=== PATIENT | male | born 1985 | race Caucasian/White ===

== ENCOUNTER 2017-07-08 09:31 | Emergency (ER) | payer OTHER ==
[~2017-07-08] VITALS: Ht 172.7 cm; Wt 90.0 kg
[~2017-07-08 09:31] MED LIST: IBUP-1050 PO
[2017-07-08 09:44] VITALS: TEMP 37.1; Ht 172.7 cm; Wt 90.0 kg
--- NOTE | 2017-07-08 11:10 | EMERGENCY ROOM VISIT NOTE ---
History Report prepared by Albina: Jorge Leon Under the Supervision of: Dr. Tangela Santana M.D. First contact with patient: 10:16 Chief Complaint: ALLERGIC REACTION Stated Complaint: [id number]/FOOD ALERGY Nursing Triage Summary: Pt states he ate at [employer] last night, sarted with an itchy rash/hives on arms and abd, denies SOB History of Present Illness The patient is a 32 year old male who presents to the Emergency Room with complaints of a worsening allergic reaction starting around 2099 last night. The patient states that he ate out at a restaurant, and 20 minutes after eating he started to get this rash and itchiness. He states that he has eaten that same meal before, and he did not eat any shrimp. The patient states that he has a rash that started on his wrists and neck, and now it has spread to his back, abdomen, and chest. The patient states that he is not having any difficulty breathing or throat tightness. He reports that he took 3 Benadryl last night, though he has not taken anything this morning. The patient states that he is not diabetic. Source of History: patient Onset: 2099 last night Position: other (global) Quality: other (allergic reaction) Timing: worsening Associated Symptoms: + rash, No SOB Note: Associated symptoms: Itchiness Review of Systems See HPI for pertinent positives & negatives. A total of 10 systems reviewed and were otherwise negative. Past Medical & Surgical Medical Problems: (1) No chronic problems Family History Bleeding disorder Kidney stones Social History Smoking Status: Never Smoker Drug Use: none Marital Status: Housing Status: lives with family Occupation Status: employed Current/Historical Medications Scheduled Prednisone (Prednisone), 40 MG PO DAILY Allergies Coded Allergies: No Known Allergies (Unverified , 07/08/17) Physical Exam Vital Signs Date Time Temp Pulse Resp B/P (MAP) Pulse Ox O2 Delivery O2 Flow Rate FiO2 07/08/17 11:40 82 18 148/89 98 Room Air 07/08/17 10:17 98 Room Air 07/08/17 09:44 37.1 101 16 162/97 98 Physical Exam Vital signs reviewed. General: Well-appearing male, in no significant distress. HEENT: No scleral icterus, PERRLA, neck supple. Atraumatic. Posterior oropharynx is clear. Cardiovascular: Regular rate and rhythm, no extra sounds. Pulmonary: Clear to auscultation bilaterally, normal work of breathing. Abdomen: Soft, nontender, nondistended, positive bowel sounds. Musculoskeletal: Atraumatic, no peripheral edema. Neurologic: Patient awake alert and oriented x 3 Skin: Urticarial rash to the chest, abdomen, upper and lower extremities, and less so on the back Medical Decision & Procedures Medications Administered Medications (Trade) Dose Ordered Sig/Luisa Route Start Time Stop Time Status Last Admin Dose Admin Prednisone (PredniSONE TAB) 60 mg NOW STAT PO 07/08/17 10:29 07/08/17 10:30 DC 07/08/17 10:47 60 MG Diphenhydramine HCl (Benadryl Cap) 50 mg NOW ONCE PO 07/08/17 10:30 07/08/17 10:31 DC 07/08/17 10:47 50 MG ED Course 1016: Past medical records reviewed. The patient was evaluated in room C12. A complete history and physical examination was performed. 1029: Prednisone 60mg PO 1030: Benadryl 50mg PO 1133: Upon reevaluation, the patient appeared to have improvement of his symptoms. I discussed findings with him. He verbalized agreement of the treatment plan. He was discharged home. Medical Decision Differential diagnosis: Etiologies such as allergic reaction, anaphylaxis, urticaria, Reilly-Jimi syndrome, toxic epidermal necrolysis, erythema multiforme, cellulitis, as well as others were entertained. This patient was evaluated and appeared to be in no significant distress. Physical examination reveals evidence of an urticarial rash consistent with an allergic reaction. Patient was given 60 mg of oral prednisone, 50 mg of Benadryl. The etiology of the allergic reaction is unclear. He was given an EpiPen at discharge in case a more significant anaphylaxis would occur. Patient will keep a mental food log if symptoms recur. He will follow-up with his physician for reevaluation. He will return to the ER for worsening symptoms or any medical concerns. Medication Reconcilliation Current Medication List: was personally reviewed by me Blood Pressure Screening Patient's blood pressure: Elevated blood pressure Blood pressure disposition: Elevated BP felt to be situational Impression Primary Impression: Allergic reaction Scribe Attestation The scribe's documentation has been prepared under my direction and personally reviewed by me in its entirety. I confirm that the note above accurately reflects all work, treatment, procedures, and medical decision making performed by me. Departure Information Dispostion Home / Self-Care Prescriptions Prednisone (Prednisone) 20 Mg Tab 40 MG PO DAILY, #8 TAB Prov: Tangela Santana M.D. 07/08/17 Referrals No Doctor, Assigned (PCP) Forms HOME CARE DOCUMENTATION FORM, IMPORTANT VISIT INFORMATION Patient Instructions My [facility] Additional Instructions Diagnosis: Allergic reaction Benadryl 50 mg every 6 hours as needed for allergic symptoms. This may make you drowsy. Prednisone 40 mg daily for 4 more days. EpiPen as directed for severe allergic symptoms. Follow-up with your physician for reevaluation if symptoms persist or reoccur. Return to the ER for worsening of symptoms or any medical concerns.
[2017-07-08 11:40] VITALS: BP 148/89; PULSE 82; O2SAT 98
[2017-07-08] MEDS ORDERED: PRED20TA PO (11:49)
[2017-07-09] MEDS ORDERED: EPP3/2 IM (15:28)
== END 2017-07-08 11:58 | disposition home or self-care (01) ==
LOC: C.EDB 09:32 → C.EDC 11:58
DX: T78.49XA Other allergy, initial encounter (principal); X58.XXXA Exposure to other specified factors, initial encounter; R21 Rash and other nonspecific skin eruption; L29.9 Pruritus, unspecified

== ENCOUNTER 2017-07-20 15:03 | Emergency (ER) | payer OTHER ==
[~2017-07-20] VITALS: Ht 172.7 cm; Wt 88.4 kg
[~2017-07-20 15:03] MED LIST changes: +EPP3/2 IM; -IBUP-1050 PO; +PRED20TA PO
[2017-07-20 15:10] VITALS: Ht 172.7 cm; Wt 88.4 kg
[2017-07-20] MEDS ORDERED: SODIUM CHLORIDE 0.9% 1000ML 1,000 ML IV STA (15:22)
[2017-07-20] MEDS ORDERED: ONDANSETRON INJ 2 MG/ML 2 ML VIAL IV STA (15:22)
[2017-07-20] MEDS ORDERED: DIPH25CA5 PO (15:42)
[2017-07-20] MEDS ORDERED: EPP3/2 IM (15:42)
[2017-07-20 15:52] LABS: BASO % 0.2 %; BASO ABS # 0.02 K/uL (0-0.2); EOS % 0.3 %; EOS ABS # 0.03 K/uL (0-0.5); HEMATOCRIT 47.7 % (42-52); HEMOGLOBIN 17.6 g/dL (14.0-18.0); IG# 0.04 K/uL (0.00-0.02); LYMPH % 2.9 %; LYMPH ABS # 0.33 K/uL (1.2-3.4); MEAN CORPUSCULAR HEMOGLOBIN 30.6 pg (25-34); MEAN CORPUSCULAR HGB CONC 36.9 g/dl (32-36); MEAN PLATELET VOLUME 10.3 fL (7.4-10.4); MONO ABS # 0.35 K/uL (0.11-0.59); NEUT % 93.3 %; NEUT ABS # 10.72 K/uL (1.4-6.5); PLATELET COUNT 161 K/uL (130-400); RED CELL DISTRIBUTION WIDTH CV 12.8 % (11.5-14.5); RED CELL DISTRIBUTION WIDTH SD 38.3 fL (36.4-46.3); WHITE BLOOD COUNT 11.49 K/uL (4.8-10.8)
[2017-07-20 16:17] LABS: CREATININE 1.14 mg/dl (0.60-1.40); POTASSIUM 3.6 mmol/L (3.5-5.1)
[2017-07-20 16:30] LABS: INFLUENZA A PCR Neg for Influ A (NEG); INFLUENZA B PCR Neg for Influ B (NEG)
[2017-07-20] MEDS ORDERED: ACETAMINOPHEN 500 MG TAB PO STA (16:43)
[2017-07-20] MEDS ORDERED: ONDA4TAB10 SL (16:44)
[2017-07-20 18:09] VITALS: BP 123/69; PULSE 95; TEMP 37.2; O2SAT 99
--- NOTE | 2017-07-20 21:08 | EMERGENCY ROOM VISIT NOTE ---
History Report prepared by Albina: Lucio Branch Under the Supervision of: Dr. Lucio Kulkarni M.D. First contact with patient: 15:16 Chief Complaint: FLU LIKE SX Stated Complaint: FLU History of Present Illness The patient is a 32 year old male who presents to the Emergency Room with complaints of worsening flu-like symptoms that began this morning when he woke up. Initially the patient had some abdominal discomfort with diarrhea. Later in the day he developed typical flulike symptoms including body aches, shaking, fevers, chills, mild cough, and feeling dehydrated. Patient adds that the vomiting and abdominal pain have resolved since coming to the ED but he has not felt like he could drink anything. He states that he has not had to pee today and that drinking water makes him throw up. He denies any chest pain or shortness of breath. Patient denies getting a flu shot this year. He denies taking any medication to resolve the symptoms. He denies a history of medical problems. Source of History: patient Onset: This morning Position: other (Global) Symptom Intensity: moderate Quality: other (Flulike symptoms) Timing: worsening Modifying Factors (Worsening): drinking Modifying Factors (Relieving): other (None) Associated Symptoms: + fevers, + chills, + cough, + vomiting, + abdominal pain, + urinary symptoms, No chest pain, No SOB Note: Patient has body aches and dehydration. Review of Systems See HPI for pertinent positives & negatives. A total of 10 systems reviewed and were otherwise negative. Past Medical & Surgical Medical Problems: (1) No chronic problems Family History Bleeding disorder Kidney stones Social History Smoking Status: Never Smoker Drug Use: none Marital Status: Housing Status: lives with family Occupation Status: employed Current/Historical Medications Scheduled Ondasetron Odt (Zofran Odt), 4 MG SL Q6H Scheduled PRN Diphenhydramine Hcl (Benadryl), 50 MG PO DIRECTED PRN for PRN Epinephrine (Epipen), 0.3 MG IM UD PRN for Allergic Reaction Allergies Coded Allergies: No Known Allergies (Unverified , 07/20/17) Physical Exam Vital Signs Date Time Temp Pulse Resp B/P (MAP) Pulse Ox O2 Delivery O2 Flow Rate FiO2 07/20/17 18:09 37.2 95 20 123/69 99 3/17/18 18:04 95 20 123/69 99 Room Air 07/20/17 17:04 102 20 152/64 99 Room Air 07/20/17 16:02 102 20 127/75 98 Room Air 07/20/17 15:10 37.8 110 18 124/70 95 Room Air Physical Exam Constitutional: Vital signs reviewed. Eyes: Pupils are equal round reactive to light. Conjunctiva are noninjected. ENT: Pharynx is clear without erythema or exudate. Mucous membranes are dry. Neck supple without meningeal signs. Respiratory: Clear to auscultation bilaterally. Breath sounds are equal bilaterally. Cardiovascular: Regular rate and rhythm. No rubs or gallops. GI: Soft, nondistended and nontender. Bowel sounds are present. Musculoskeletal: No peripheral edema. No lower extremity tenderness. Integumentary: No cyanosis. Neurological: The patient is awake and alert. No focal deficits. Psychiatric: Normal affect. Medical Decision & Procedures Laboratory Results 07/20/17 15:30 Red Blood Count 5.75, Mean Corpuscular Volume 83.0, Mean Corpuscular Hemoglobin 30.6, Mean Corpuscular Hemoglobin Concent 36.9, Mean Platelet Volume 10.3, Neutrophils (%) (Auto) 93.3, Lymphocytes (%) (Auto) 2.9, Monocytes (%) (Auto) 3.0, Eosinophils (%) (Auto) 0.3, Basophils (%) (Auto) 0.2, Neutrophils # (Auto) 10.72, Lymphocytes # (Auto) 0.33, Monocytes # (Auto) 0.35, Eosinophils # (Auto) 0.03, Basophils # (Auto) 0.02 07/20/17 15:30 Test 07/20/17 15:28 07/20/17 15:30 Influenza Type A (RT-PCR) Neg for Influ A (NEG) Influenza Type B (RT-PCR) Neg for Influ B (NEG) White Blood Count 11.49 K/uL (4.8-10.8) Red Blood Count 5.75 M/uL (4.7-6.1) Hemoglobin 17.6 g/dL (14.0-18.0) Hematocrit 47.7 % (42-52) Mean Corpuscular Volume 83.0 fL (80-100) Mean Corpuscular Hemoglobin 30.6 pg (25-34) Mean Corpuscular Hemoglobin Concent 36.9 g/dl (32-36) Platelet Count 161 K/uL (130-400) Mean Platelet Volume 10.3 fL (7.4-10.4) Neutrophils (%) (Auto) 93.3 % Lymphocytes (%) (Auto) 2.9 % Monocytes (%) (Auto) 3.0 % Eosinophils (%) (Auto) 0.3 % Basophils (%) (Auto) 0.2 % Neutrophils # (Auto) 10.72 K/uL (1.4-6.5) Lymphocytes # (Auto) 0.33 K/uL (1.2-3.4) Monocytes # (Auto) 0.35 K/uL (0.11-0.59) Eosinophils # (Auto) 0.03 K/uL (0-0.5) Basophils # (Auto) 0.02 K/uL (0-0.2) RDW Standard Deviation 38.3 fL (36.4-46.3) RDW Coefficient of Variation 12.8 % (11.5-14.5) Immature Granulocyte % (Auto) 0.3 % Immature Granulocyte # (Auto) 0.04 K/uL (0.00-0.02) Anion Gap 6.0 mmol/L (3-11) Est Creatinine Clear Calc Drug Dose 102.4 ml/min Estimated GFR () 99.5 Estimated GFR (Non- 85.8 BUN/Creatinine Ratio 12.9 (10-20) Calcium Level 9.0 mg/dl (8.5-10.1) Laboratory results as reviewed by me. Medications Administered Medications (Trade) Dose Ordered Sig/Luisa Route Start Time Stop Time Status Last Admin Dose Admin Sodium Chloride 1,000 ml @ 999 mls/hr Q1H1M STAT IV 07/20/17 15:22 07/20/17 16:22 DC 07/20/17 16:02 999 MLS/HR Ondansetron HCl (Zofran Inj) 4 mg NOW STAT IV 07/20/17 15:22 18 15:23 DC 07/20/17 16:02 4 MG Acetaminophen (Tylenol Tab) 1,000 mg NOW STAT PO 07/20/17 16:43 07/20/17 16:44 DC 07/20/17 17:03 1,000 MG ED Course 1515: The patient was evaluated in room C10. A complete history and physical exam was performed. 1522: Zofran Inj 4mg IV and Sodium Chloride 1000 ml @ 999 mls/hr IV. 1644: Upon reevaluation, the patient appeared to have improvement of his symptoms. I discussed tonight's findings with him. He verbalized agreement of the treatment plan. He was discharged home. Medical Decision This is a 32-year-old male who presents with flulike symptoms with vomiting and diarrhea. Differential diagnosis includes influenza, viral syndrome, foodborne illness, gastroenteritis, dehydration, electrolyte abnormality. I did perform a limited focused review of portions of the patient's old chart on the electronic medical record. The patient was seen in the ER on the 5th for an allergic reaction. Patient was placed on prednisone. I did evaluate the patient as noted above. Patient is presenting with flulike symptoms starting this morning. He has vomiting and diarrhea as well. He does not have any meningeal signs. IV access was established. I did treat the patient with Zofran IV and normal saline IV. He was also given Tylenol. I did order and review the patient's blood work as noted in the electronic medical record. His white blood cell count is slightly elevated which is a nonspecific finding. I did order PCR testing for influenza which was negative. I did reassess the patient. He is feeling better. I did discuss the test results with the patient and his . He was advised to follow-up closely with his doctor. I did review return instructions with him and his . He was discharged with a prescription for Zofran. Medication Reconcilliation Current Medication List: was personally reviewed by me Blood Pressure Screening Patient's blood pressure: Normal blood pressure Blood pressure disposition: Did not require urgent referral Impression Primary Impression: Dehydration Additional Impressions: Flu-like symptoms Vomiting and diarrhea Scribe Attestation The scribe's documentation has been prepared under my direct and personally reviewed by me in its entirety. I confirm that the note above accurately reflects all work, treatment, procedures, and medical decision making performed by me. Departure Information Dispostion Home / Self-Care Prescriptions Ondasetron Odt (ZOFRAN ODT) 4 Mg Tab 4 MG SL Q6H for Nausea, #10 TAB Prov: Lucio Kulkarni M.D. 07/20/17 Referrals No Doctor, Assigned (PCP) Forms HOME CARE DOCUMENTATION FORM, IMPORTANT VISIT INFORMATION Patient Instructions My [facility] [address] Additional Instructions You have been examined and treated today on an emergency basis only. This is not a substitute for, or an effort to provide, complete comprehensive medical care. It is impossible to recognize and treat all injuries or illnesses in a single emergency department visit. It is therefore important that you follow up closely with your physician. Call as soon as possible for an appointment. Return for worsening symptoms or if you develop high fever, rash, neck stiffness , numbness or weakness on one side of your body, difficulties with your speech or walking, or any other concerning symptoms. Problem Qualifiers
== END 2017-07-20 18:10 | disposition home or self-care (01) ==
LOC: C.EDB 15:06 → C.EDC 18:10
DX: E86.0 Dehydration (principal); R11.10 Vomiting, unspecified; R19.7 Diarrhea, unspecified; R52 Pain, unspecified; R50.9 Fever, unspecified; R05 Cough; Z83.2 Family history of diseases of the blood and blood-forming organs and certain disorders involving the immune mechanism; Z84.1 Family history of disorders of kidney and ureter